=== PATIENT | female | born 1985 | race Two or more races ===

== ENCOUNTER 2020-10-09 10:48 | Outpatient (CLI) | payer OTHER, SELFPAY | END 2020-10-09 10:49 | disposition home or self-care (01) | LOC: ANHCOVIDVC 10:48 | PROVIDERS: PCP Podiatrist Foot & Ankle Surgery | DX: Z23 Encounter for immunization (principal) | CPT/HCPCS: 0001A; 91300 ==

== ENCOUNTER 2020-10-30 10:44 | Outpatient (CLI) | payer OTHER, SELFPAY | END 2020-10-30 10:45 | disposition home or self-care (01) | LOC: ANHCOVIDVC 10:45 | PROVIDERS: PCP Podiatrist Foot & Ankle Surgery | DX: Z23 Encounter for immunization (principal) | CPT/HCPCS: 0002A; 91300 ==